=== PATIENT | female | born 1930 | race Caucasian/White ===

== ENCOUNTER → 2016-06-16 | Outpatient (CLI) | payer MEDICARE ==
[~2016-06-16] MED LIST: AMLO5TAB2 PO; ASCO500T20 PO; ASP81TEC PO; C250T; CLD600T PO; E400C PO; EST45C; IBP200T PO; LEVO75TA6 PO; LISI40TA PO; LRT10T PO; METH5TAB6 PO; MTP25TSR PO; OXB5T; TELM40T; [UNRECOGNIZED DRUG - OTHER] TOP
--- NOTE | 2016-06-17 18:51 | Diagnostic Imaging Report ---
Bilateral screening mammogram. The current study was also evaluated with a Computer Aided Detection (CAD) system. INDICATION: Screening. No current complaints stated on the questionnaire. COMPARISON: 05/09/15. FINDINGS: The breasts are composed of heterogeneously dense parenchyma which may decrease mammographic sensitivity. Benign-appearing calcifications are seen. Allowing for technique and positional differences, no suspicious change is seen. IMPRESSION: Dense breasts with no definite change. ACR BI-RADS Category 2: Benign findings. Result letter will be mailed to the patient. Note: At least 10% of breast cancer is not imaged by mammography. Dictated by: Dictated on workstation # [id number]
== END ==
LOC: RAD 09:15
PROVIDERS: ATTEND Obstetrics & Gynecology
DX: Z12.31 Encounter for screening mammogram for malignant neoplasm of breast (principal)
CPT/HCPCS: 77067

== ENCOUNTER → 2017-01-12 | Outpatient (CLI) | payer MEDICARE | LOC: CARD 13:31 | PROVIDERS: ATTEND Physician Assistant | DX: I25.10 Atherosclerotic heart disease of native coronary artery without angina pectoris (principal); I65.23 Occlusion and stenosis of bilateral carotid arteries; I10 Essential (primary) hypertension; E78.2 Mixed hyperlipidemia | CPT/HCPCS: 93306 ==

== ENCOUNTER → 2017-01-24 | Outpatient (CLI) | payer MEDICARE ==
[~2017-01-24] VITALS: Ht 165.1 cm; Wt 55.3 kg
[~2017-01-24] MED LIST changes: +CATHETER FLUSH 10 ML SYR IV PRN
[2017-01-24 09:52] VITALS: BP 154/84
--- NOTE | 2017-01-24 23:02 | STRESS TEST ---
DATE OF SERVICE: 01/24/2017 EXERCISE MYOVIEW STRESS TEST REPORT REFERRING PHYSICIAN: Maribel Leigh DO. Baseline heart rate is 59. Baseline blood pressure is 153/65. Baseline EKG is sinus rhythm with no ischemic changes. SUMMARY: The patient was injected with 10.83 mCi of technetium-99 Myoview and the resting images were obtained. Then, she started exercising with a baseline heart rate, blood pressure and EKG mentioned above. At minute 1 and 30 seconds, the patient was injected with 33.0 mCi of technetium-99 Myoview. She was able to finish a total of 2 minutes 30 seconds on standard Fan protocol, achieving maximum heart rate of 140, which is 100% of maximum expected heart rate. With peak exercise level, blood pressure was 205/84. EKG was showing nondiagnostic changes. During recovery, heart rate and blood pressure returned to baseline. EKG returned to baseline. The resting and stress images were reviewed and compared in the short axis, horizontal long axis, and vertical long axis views. Review of the images showed good radiotracer uptake with no ischemia or infarction on SPECT images. SSS is 0. TID value is 1.05. On the gated images, the left ventricle appeared to be normal size with normal contractility. Calculated ejection fraction is 75%. CONCLUSION: 1. Poor exercise tolerance, a total of 2 minutes 30 seconds on standard Fan protocol, achieving 100% of maximum expected heart rate, total of 3.8 METs. 2. Nondiagnostic EKG changes with exercise returned to baseline during recovery. 3. Hypertensive response to exercise returned to baseline during recovery. 4. No ischemia or infarction on SPECT images. 5. Normal left ventricular size with normal contractility. Calculated ejection fraction is 75%. Job ID: [id number] DocumentID: [id number] Dictated Date: 01/24/2017 16:52:07 Product Applications Scientist Date: 01/24/2017 19:46:14 Dictated By: KEESHA PARISH MD
== END ==
LOC: CARD 08:14
PROVIDERS: ATTEND Physician Assistant
DX: I25.10 Atherosclerotic heart disease of native coronary artery without angina pectoris (principal); I65.23 Occlusion and stenosis of bilateral carotid arteries; I10 Essential (primary) hypertension; E78.2 Mixed hyperlipidemia
CPT/HCPCS: 78452; 93017

== ENCOUNTER → 2018-06-19 | Outpatient (CLI) | payer MEDICARE, OTHER ==
[~2018-06-19] MED LIST changes: -AMLO5TAB2 PO; +AMLO5TAB9 PO; -CATHETER FLUSH 10 ML SYR IV PRN
[2018-06-19 14:55] LABS: BASOPHILS % (AUTO) 1 % (0-10); EOSINOPHILS # (AUTO) 0.1 10^3/uL (0.0-0.3); EOSINOPHILS % (AUTO) 2 % (0-10); HEMATOCRIT 38 % (35-52); HEMOGLOBIN 12.2 G/DL (11.5-16.0); LYMPHOCYTES # (AUTO) 1.5 X 10^3 (1.0-4.0); LYMPHOCYTES % (AUTO) 26 % (12-44); MEAN CORPUSCULAR HEMOGLOBIN 32 PG (25-34); MEAN CORPUSCULAR HGB CONC 32 G/DL (32-36); MEAN CORPUSCULAR VOLUME 99 FL (80-99); MONOCYTES # (AUTO) 0.4 X 10^3 (0.0-1.0); MONOCYTES % (AUTO) 7 % (0-12); NEUTROPHILS # (AUTO) 3.6 X 10^3 (1.8-7.8); NEUTROPHILS % (AUTO) 65 % (42-75); PLATELET COUNT 226 10^3/uL (130-400); RED CELL DISTRIBUTION WIDTH 13.1 % (10.0-14.5); WHITE BLOOD COUNT 5.6 10^3/uL (4.3-11.0)
[2018-06-19 15:13] LABS: ALANINE AMINOTRANSFERASE 17 U/L (0-55); ALBUMIN 4.2 GM/DL (3.2-4.5); ALKALINE PHOSPHATASE 62 U/L (40-136); BILIRUBIN,TOTAL 0.4 MG/DL (0.1-1.0); BUN/CREATININE RATIO 17; CALCIUM 9.3 MG/DL (8.5-10.1); CARBON DIOXIDE 29 MMOL/L (21-32); CHLORIDE 104 MMOL/L (98-107); CREATININE SERUM 0.89 MG/DL (0.60-1.30); GFR ESTIMATED 60; GLUCOSE 108 MG/DL (70-105); POTASSIUM 4.1 MMOL/L (3.6-5.0); SODIUM 139 MMOL/L (135-145); TOTAL PROTEIN 6.5 GM/DL (6.4-8.2)
== END ==
LOC: CARD 14:08
PROVIDERS: ATTEND Family Medicine
DX: R53.83 Other fatigue (principal); I49.9 Cardiac arrhythmia, unspecified; R06.00 Dyspnea, unspecified
CPT/HCPCS: 36415; 80053; 84439; 84443; 84484; 85025; 93005

== ENCOUNTER → 2018-06-23 | Outpatient (CLI) | payer MEDICARE, OTHER ==
--- NOTE | 2018-06-26 11:57 | Diagnostic Imaging Report ---
Indication: Screening. The current study was also evaluated with a Computer Aided Detection (CAD) system. 3-D tomosynthesis was also performed and reviewed. Comparison made with prior examination from 06/20/2017, 06/16/2016 and 05/09/2015. 3-D tomosynthesis was performed and reviewed. FINDINGS: There are scattered fibroglandular densities bilaterally. There are benign type calcifications. There is no dominant mass, spiculated lesion or suspicious calcification identified. Skin, nipples and axilla are unremarkable. Impression: Category 2 benign ACR BI-RADS Category 2: Benign findings. Result letter will be mailed to the patient. Note: At least 10% of breast cancer is not imaged by mammography. Dictated by: Dictated on workstation # [id number]
== END ==
LOC: RAD 10:34
PROVIDERS: ATTEND Obstetrics & Gynecology
DX: Z12.31 Encounter for screening mammogram for malignant neoplasm of breast (principal); N64.4 Mastodynia; Z98.890 Other specified postprocedural states
CPT/HCPCS: 77067

== ENCOUNTER → 2018-06-30 | Outpatient (CLI) | payer MEDICARE, OTHER | LOC: CARD 09:36 | PROVIDERS: ATTEND Physician Assistant | DX: I25.10 Atherosclerotic heart disease of native coronary artery without angina pectoris (principal); I65.29 Occlusion and stenosis of unspecified carotid artery; I10 Essential (primary) hypertension; I34.0 Nonrheumatic mitral (valve) insufficiency; E78.2 Mixed hyperlipidemia | CPT/HCPCS: 93225; 93226 ==

== ENCOUNTER → 2019-05-02 | Outpatient (CLI) | payer MEDICARE, OTHER ==
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
== END ==
LOC: RAD 12:56
PROVIDERS: ATTEND Family Medicine
DX: S09.90XA Unspecified injury of head, initial encounter (principal)
CPT/HCPCS: 70450

== ENCOUNTER → 2019-08-01 | Outpatient (CLI) | payer MEDICARE, OTHER ==
--- NOTE | 2019-08-01 14:44 | Diagnostic Imaging Report ---
INDICATION: Routine screening. COMPARISON: 06/23/2018 and 06/20/2017. TECHNIQUE: 2D and 3D bilateral screening mammography was performed with CAD. FINDINGS: Both breasts remain heterogeneously dense, limiting the sensitivity of mammography. There are scattered benign-appearing parenchymal and vascular calcifications. No mass or malignant appearing microcalcifications are seen. The axillae are unremarkable. IMPRESSION: No mammographic features suspicious for malignancy are identified. ACR BI-RADS Category 2: Benign findings. Result letter will be mailed to the patient. Note: At least 10% of breast cancer is not imaged by mammography. Dictated by: Dictated on workstation # [id number]
== END ==
LOC: RAD 09:49
PROVIDERS: ATTEND Obstetrics & Gynecology
DX: Z12.31 Encounter for screening mammogram for malignant neoplasm of breast (principal)
CPT/HCPCS: 77063; 77067

== ENCOUNTER → 2020-01-10 | Outpatient (CLI) | payer MEDICARE, OTHER ==
[~2020-01-10] MED LIST changes: +AMLO-250 PO; -AMLO5TAB9 PO
--- NOTE | 2020-01-11 09:28 | NUR ---
Notified of positive COVID results.
== END ==
LOC: LABNPT 05:48
PROVIDERS: ATTEND Family Medicine
DX: U07.1 COVID-19 (principal)
CPT/HCPCS: 87635

== ENCOUNTER → 2020-03-21 | Outpatient (CLI) | payer MEDICARE, OTHER | LOC: CARD 09:00 | PROVIDERS: ATTEND Physician Assistant | DX: I25.10 Atherosclerotic heart disease of native coronary artery without angina pectoris (principal); I34.0 Nonrheumatic mitral (valve) insufficiency | CPT/HCPCS: 93306 ==

== ENCOUNTER → 2022-05-28 | Outpatient (CLI) | payer MEDICAID, OTHER ==
--- NOTE | 2022-05-28 14:08 | Diagnostic Imaging Report ---
CT SINUS COMPLETE WO DATE: 05/28/2022 12:42 PM INDICATION: CHRONE SINUSITIS. COMPARISON: None. TECHNIQUE: CT images of the paranasal sinuses were obtained without intravenous contrast. Coronal and sagittal reformatted images were performed at a separate workstation and reviewed. One or more of the following dose reduction techniques were utilized: Automated exposure control (AEC), Adjustment of mA and/or kV according to patient size, Use of iterative reconstruction technique such as ASiR, CT scan done according to ALARA and image gently/image wisely FINDINGS: The maxillary, ethmoid, sphenoid, and frontal sinuses are clear. No air-fluid levels. No significant mucoperiosteal thickening. The osteomeatal units are patent. No significant nasal septal deviation. The visualized osseous structures are otherwise normal. The visualized orbits and globes are normal. The visualized brain parenchyma is normal in attenuation. IMPRESSION: No evidence of inflammatory sinonasal disease. Dictated by: Dictated on workstation # [id number]
== END ==
LOC: RAD 12:45
PROVIDERS: ATTEND Family Medicine
DX: J32.9 Chronic sinusitis, unspecified (principal)
CPT/HCPCS: 70486